=== PATIENT | female | born 1980 | race Caucasian/White ===

== ENCOUNTER 2017-11-10 10:05 | Day surgery (SDC) | payer OTHER ==
[~2017-11-10 10:05] MED LIST: LACTATED RINGERS 1,000 ML IV SCH; LIDOCAINE 1% 20 ML VIAL (10MG/ML) FOR IV START INTRADERMA PRN
[2017-11-10 10:53] VITALS: TEMP 98.2
[2017-11-10] MEDS ORDERED: PROPOFOL 10 MG/ML 20 ML VIAL IV ONE (11:37)
[2017-11-10] MEDS ORDERED: LIDOCAINE 1% INJ 10MG/ML (20 ML MDV) ONE (11:37)
--- NOTE | 2017-11-10 12:06 | P.PCN ---
Date of Procedure: 11/10/17 Procedure(s) Performed: Brief history: Patient is a pleasant scheduled fo 37-year-old white female,r an elective upper endoscopy as well as colonoscopy as a part of evaluation ofabdominal pain, intermittent nausea vomiting and chronic diarrhea for the last several months duration. She has bowel movements anywhere from 6-10 a day which are loose to watery in consistency. No rectal bleeding. Procedure performed: Esophagogastroduodenoscopy With biopsy Colonoscopy with biopsy Preoperative diagnosis: Nausea/vomiting Chronic diarrhea/abdominal pain Anesthesia: MAC Procedure: After informed consent was obtained from the patient was brought into the endoscopy unit and IV sedation was administered by anesthesia under continuous monitoring. Initially upper endoscopy was done. The Olympus GF 160 video endoscope was inserted inserted into the mouth and esophagus intubated without any difficulty and was gradually advanced into the stomach and duodenum and carefully examined. The bulb and second part of the duodenum appeared normal. abscesses were done from the duodenum to rule out celiac disease. The scope was then withdrawn into the stomach adequately insufflated with air and upon careful examination the antrum colonoscopy was essentially within normal limits with no evidence of colitis or colorectal neoplasia had mild gastritis and biopsies were done from this area. The body, cardia and fundus appeared normal. The scope was then withdrawn into the esophagus. small hiatal hernia noted. The GE junction was located at 37 cm to the incisors. It appeared regular with no erythema erosions or ulcerations. Rest of the esophagus appeared normal. Patient tolerated the procedure well. At this time the patient continued to remain sedation. Initial digital rectal examination was normal. Olympus CF 160 video colonoscope was then inserted into the rectum and gradually advanced to the cecum without any difficulty. Careful examination was performed as the scope was gradually being withdrawn. The prep was excellent. Terminal ileum was intubated and 20 cm resected appeared normal. Biopsies were done from this area. The cecum, ascending colon , transverse colon, descending colon, sigmoid colon and rectum appeared normal. Random biopsies were done from the ascending and descending colon to rule out microscopic/collagenous colitis. Retroflexion was performed in the rectum and no lesions were noted. Patient tolerated the procedure well. Impression: 1. Upper endoscopy revealed small hiatal hernia and mild antral gastritis. 2. Colonoscopy was within normal limits with no evidence of colitis or colorectal neoplasia Recommendations: Findings of this examination were discussed with the patient as well as her family. She was advised to follow with the biopsy results. She'll be seen in the office in 3 weeks.]
[2017-11-10 12:28] VITALS: BP 128/78; PULSE 53; RESP 18
== END 2017-11-10 13:02 | disposition home or self-care (01) ==
LOC: ORWHC2ENDO 10:05
PROVIDERS: ATTEND Internal Medicine Gastroenterology
DX: K29.60 Other gastritis without bleeding (principal); K44.9 Diaphragmatic hernia without obstruction or gangrene; K29.50 Unspecified chronic gastritis without bleeding; B96.81 Helicobacter pylori [H. pylori] as the cause of diseases classified elsewhere; K52.831 Collagenous colitis; R19.7 Diarrhea, unspecified; D64.9 Anemia, unspecified; Z79.899 Other long term (current) drug therapy; Z88.6 Allergy status to analgesic agent; Z88.0 Allergy status to penicillin; F17.210 Nicotine dependence, cigarettes, uncomplicated
CPT/HCPCS: 81025; 45380; 43239; J2001; J2704; 88305; 88313; 88342

== ENCOUNTER 2022-11-13 09:35 | Day surgery (SDC) | payer BC, OTHER ==
[2022-11-12 10:05] VITALS: BMI 22.4
[2022-11-13] MEDS ORDERED: LIDOCAINE 1% (10MG/ML) FOR IV START INTRADERMA PRN (09:46)
[2022-11-13] MEDS ORDERED: LACTATED RINGERS 1,000 ML IV SCH (09:46)
[2022-11-13] MEDS ORDERED: ONDANSETRON 4 MG/2 ML VIAL IVP PRN (09:46)
[2022-11-13 10:04] VITALS: TEMP 97.1
[2022-11-13] MEDS ORDERED: PROPOFOL 10 MG/ML 20 ML VIAL IV ONE (11:04)
--- NOTE | 2022-11-13 11:29 | P.PCN ---
Date of Procedure: 11/13/22 Procedure(s) Performed: BRIEF HISTORY: Patient is a 42-year-old pleasant white white female scheduled for an elective colonoscopy as a part of evaluation of lower abdominal pain and change in bowel habits with alternating diarrhea and constipation for the last several months duration. PROCEDURE PERFORMED: Colonoscopy biopsy. PREOPERATIVE DIAGNOSIS: Lower abdominal pain and change in bowel habits. IV sedation per Anesthesia. PROCEDURE: After informed consent was obtained, the patient, was brought into the endoscopy unit. IV sedation was administered by Anesthesia under continuous monitoring. Digital rectal examination was normal. Initially the Olympus CF-160 flexible video colonoscope was then inserted in the rectum, gradually advanced into the cecum without any difficulty. Careful examination was performed as the scope was gradually being withdrawn. Ileocecal valve and the appendiceal orifice were visualized and appeared normal. Prep was poor and several areas of the colon.. Mucosa of the cecum, ascending colon, transverse colon, descending colon, sigmoid colon, and rectum appeared normal. Random biopsies were done from ascending and descending colon to rule out metastatic/plan his colitis. Retroflexion was performed in the rectum and no lesions were seen. The patient tolerated the procedure well. IMPRESSION: Normal-appearing colon from rectum to cecum with no evidence of colorectal neoplasia . Poor prep in several areas of the colon. RECOMMENDATIONS: Findings of this examination were discussed with the patient as well as a family. She was advised to follow with the biopsy result. Continue with a high-fiber diet and fiber supplements a regular basis.. Recommended repeat colonoscopy in 5 years from now because of the poor prep.
[2022-11-13 11:50] VITALS: BP 122/80; PULSE 59; RESP 18
== END 2022-11-13 12:04 | disposition home or self-care (01) ==
LOC: ORWHC2ENDO 09:35
PROVIDERS: ATTEND Internal Medicine Gastroenterology
DX: R19.4 Change in bowel habit (principal); I10 Essential (primary) hypertension; E78.5 Hyperlipidemia, unspecified; E07.9 Disorder of thyroid, unspecified; J44.9 Chronic obstructive pulmonary disease, unspecified; F12.90 Cannabis use, unspecified, uncomplicated; F17.210 Nicotine dependence, cigarettes, uncomplicated; Z88.0 Allergy status to penicillin; Z88.6 Allergy status to analgesic agent; Z79.811 Long term (current) use of aromatase inhibitors; Z79.899 Other long term (current) drug therapy; Z98.890 Other specified postprocedural states
CPT/HCPCS: 81025; 88305; 45380; J2704